=== PATIENT | male | born 1975 | race Caucasian/White ===

== ENCOUNTER → 2024-08-28 13:15 | Outpatient (REF) | payer OTHER, SELFPAY ==
[2024-08-28 16:33] LABS: % Basophils 0.7 % (0-2); % Eosinophils 1.7 % (0-6); % Monocytes 6.8 % (1.7-9.3); % Neutrophils 60.8 % (42.2-75.2); Absolute Eosinophils 0.1 10^3/uL (0-0.7); Absolute Lymphocytes 1.7 10^3/uL (1.2-3.4); Absolute Monocytes 0.4 10^3/uL (0.1-0.6); Absolute Neutrophils 3.5 10^3/uL (1.4-6.5); Hematocrit 42.7 % (39.0-52.0); Hemoglobin 14.8 g/dL (13.0-18.0); Mean Corp Hgb Conc. 34.7 g/dL (33.0-37.0); Mean Corpuscular Hgb 29.1 pg (27.0-31.0); Mean Corpuscular Volume 83.9 fL (80.0-94.0); Mean Platelet Volume 9.7 fL (7.4-10.4); Nucleated Red Blood Cells % 0 % (-); Platelet Count 280 10^3/uL (130-400); Red Blood Cell Count 5.09 10^6/uL (4.70-6.10); Red Cell Dist. Width 12.1 % (11.5-14.5); White Blood Cell Count 5.8 10^3/uL (4.8-10.8)
[2024-08-28 16:44] LABS: ALT (SGPT) 27 U/L (0-50); AST (SGOT) 27 U/L (17-59); Albumin 4.5 g/dl (3.5-5.0); Alkaline Phosphatase 79 U/L (38-126); Blood Urea Nitrogen 16 mg/dl (9-20); Calcium 9.6 mg/dl (8.4-10.2); Carbon Dioxide 26 mmol/L (22-30); Chloride 110 mmol/L (98-107); Glucose 102 mg/dl (70-99); HDL Cholesterol 36 mg/dl; LDL Cholesterol, Calculated 113 mg/dl; Potassium 4.3 mmol/L (3.5-5.1); Sodium 142 mmol/L (135-145); Total Bilirubin 0.9 mg/dl (0.2-1.3); Total Cholesterol 198 mg/dl (50-199); Total Protein 7.6 g/dl (6.3-8.2); Triglyceride 247 mg/dl (10-149); Very Low Density Lipoprotein 49 mg/dl (0-30); eGFR > 60.00
[2024-08-28 16:56] LABS: Free T4 1.14 ng/dl (0.78-2.19); Vitamin D, 25-OH*** 55.5 ng/mL (30-80)
[2024-08-28 17:09] LABS: PSA, Total - Screen 0.97 ng/ml (0.0-4.0)
[2024-08-29 09:22] LABS: Glycohemoglobin (HgbA1c) 5.5 % (4.0-5.6)
== END ==
LOC: HWRAD 13:15
PROVIDERS: ATTENDING PHYSICIAN Physician Assistant Medical
DX: D48.5 Neoplasm of uncertain behavior of skin (principal); Z76.89 Persons encountering health services in other specified circumstances; J45.909 Unspecified asthma, uncomplicated; J30.2 Other seasonal allergic rhinitis
CPT/HCPCS: 36415; 76705; 80053; 80061; 82306; 83036; 84439; 84443; 85025; G0103